=== PATIENT | male | born 1980 | race Hispanic/Latino ===

== ENCOUNTER 2022-12-19 10:48 | Emergency (ER) | payer OTHER ==
[~2022-12-19] VITALS: Ht 175.3 cm; Wt 84.8 kg
[2022-12-19 11:29] LABS: BASOPHILS % (AUTO) 1.5 % (0.0-5.0); EOSINOPHILS % (AUTO) 1.9 % (0.0-8.0); HEMATOCRIT 48.3 % (42-54); LYMPHOCYTES % (AUTO) 13.5 % (21.0-51.0); MEAN CORPUSCULAR HEMOGLOBIN 31.2 pg (27.0-33.0); MEAN CORPUSCULAR VOLUME 91.8 fL (79-99); MONOCYTES % (AUTO) 8.2 % (3.0-13.0); NEUTROPHILS % (AUTO) 74.2 % (40.0-77.0); PLATELET COUNT (AUTO) 390 K/uL (130-400); RED BLOOD CELL COUNT(AUTO) 5.26 MIL/uL (4.50-6.20); RED CELL DISTRIBUTION WIDTH 12.8 % (11.0-15.5); WHITE BLOOD COUNT (AUTO) 7.4 K/uL (4.8-10.8)
[2022-12-19 11:40] LABS: CREATININE 1.1 mg/dL (0.5-1.5); POTASSIUM 3.9 mmol/L (3.5-5.1)
[2022-12-19 11:45] LABS: ALBUMIN 4.1 g/dL (3.5-5.0); TOTAL PROTEIN, SERUM 8.5 g/dL (6.0-8.3)
[2022-12-19] MEDS ORDERED: 0.9%NACL 1000ML 1,000 ML IV SCH (13:00)
[2022-12-19] MEDS ORDERED: ONDANSETRON 4MG INJ IVP ONE (13:00)
[2022-12-19] MEDS ORDERED: HYDR12.54 PO ×2 (13:15→13:17)
[2022-12-19 13:30] LABS: APPEARANCE,URINE CLEAR (CLEAR); BILIRUBIN,URINE NEGATIVE (NEGATIVE); COLOR,URINE YELLOW (YELLOW); GLUCOSE, URINE (UA) NEGATIVE (NEGATIVE); KETONES,URINE NEGATIVE (NEGATIVE); LEUKOCYTE ESTERASE ,URINE NEGATIVE Leu/uL (NEGATIVE); NITRATE,URINE NEGATIVE (NEGATIVE); OCCULT BLOOD,URINE NEGATIVE (NEGATIVE); PH,URINE 6.5 (5.0-8.0); PROTEIN,URINE 30 mg/dL (NEGATIVE)
[2022-12-19 13:36] LABS: AMPHET/METH SCREEN,URINE NEGATIVE (NEGATIVE); BARBITURATE SCREEN, URINE NEGATIVE (NEGATIVE); BENZODIAZEPINES SCREEN,URINE NEGATIVE (NEGATIVE); CANNABINOID SCREEN,URINE POSITIVE (NEGATIVE); COCAINE SCREEN,URINE POSITIVE (NEGATIVE); OPIATE SCREEN,URINE POSITIVE (NEGATIVE); PHENCYCLIDINE SCREEN,URINE NEGATIVE (NEGATIVE)
[2022-12-19 13:47] LABS: MUCUS,URINE RARE LPF (None Seen); SQUAMOUS EPITHELIAL CELL,UR RARE /HPF (0-2); WBC,URINE 0-1 /HPF (0-1)
[2022-12-19 14:12] VITALS: BP 126/72
== END 2022-12-19 14:18 | disposition home or self-care (01) ==
LOC: EDH 10:48
DX: I10 Essential (primary) hypertension (principal); R63.0 Anorexia; F17.200 Nicotine dependence, unspecified, uncomplicated; K21.9 Gastro-esophageal reflux disease without esophagitis
CPT/HCPCS: 36415; 71045; 80053; 80305; 81001; 84484; 85025; 93005; 96361; 96374

== ENCOUNTER 2023-01-08 16:17 | Emergency (ER) | payer OTHER ==
[~2023-01-08] VITALS: Ht 175.3 cm; Wt 95.3 kg
[~2023-01-08 16:17] MED LIST: HYDR12.54 PO
[2023-01-08 17:28] VITALS: BP 109/68; PULSE 76; RESP 18
[2023-01-08] MEDS ORDERED: ACETAMINOPHEN 500 MG TABLET PO ONE (20:00)
[2023-01-08] MEDS ORDERED: DIPH,PERTUSS(ACELL),TET VAC/PF 0.5 ML VIAL IM ONE (20:00)
[2023-01-08] MEDS ORDERED: TETANUS/DIPHTHERIA TOXOID [ADULT] 0.5 ML VIAL IM ONE (20:30)
[2023-01-08] MEDS ORDERED: CEPH500B PO (23:00)
== END 2023-01-08 23:19 | disposition home or self-care (01) ==
LOC: EDH 16:17
DX: S61.212A Laceration without foreign body of right middle finger without damage to nail, initial encounter (principal); I10 Essential (primary) hypertension; F17.200 Nicotine dependence, unspecified, uncomplicated; K21.9 Gastro-esophageal reflux disease without esophagitis; Z79.899 Other long term (current) drug therapy; X58.XXXA Exposure to other specified factors, initial encounter; Y93.89 Activity, other specified; Y92.89 Other specified places as the place of occurrence of the external cause; Y99.8 Other external cause status
CPT/HCPCS: 12001; 73140; 90471; 90714